=== PATIENT | female | born 1945 | race Caucasian/White ===

== ENCOUNTER 2019-04-25 19:16 | Emergency (ER) | payer OTHER ==
[~2019-04-25] VITALS: Ht 157.5 cm; Wt 67.1 kg
[2019-04-25] MEDS ORDERED: ALEVE220 MG (19:39)
== END 2019-04-26 | disposition home or self-care (01) ==
LOC: ER 19:16
DX: M62.838 Other muscle spasm (principal)

== ENCOUNTER 2021-10-14 19:54 | Emergency (ER) | payer OTHER ==
[~2021-10-14] VITALS: Ht 170.2 cm; Wt 103.9 kg
[~2021-10-14 19:54] MED LIST: ALEVE220 MG
[2021-10-15] MEDS ORDERED: PEPCID AC20 MG PO (07:33)
[2021-10-15] MEDS ORDERED: NAPROXEN500 MG PO (07:33)
== END 2021-10-15 07:45 | disposition home or self-care (01) ==
LOC: ER 19:54
DX: K76.89 Other specified diseases of liver (principal); G30.9 Alzheimer's disease, unspecified
CPT/HCPCS: 74177; 76700; Q9965